=== PATIENT | male | born 1955 | race Two or more races ===

== ENCOUNTER 2023-05-24 12:43 | Inpatient (IN) | payer OTHER ==
[~2023-05-24] VITALS: Ht 167.6 cm; Wt 42.0 kg
[2023-05-24] MEDS ORDERED: methylPREDNISolone SOD SUCC 125 MG/2 ML VL IV ONE (14:15)
[2023-05-24 14:34] LABS: Basophils # (auto) 0 10 ^3/uL (0-0.2); Eosinophils # (auto) 0 10 ^3/uL (0-0.8); Neutrophils % (auto) 93.3 % (37.0-80.0)
[2023-05-24 14:37] LABS: Basophils % (auto) 0.2 % (0.0-2.0); Hemoglobin 13.5 g/dL (13.5-17.5); Lymphocytes # (auto) 0.4 10 ^3/uL (0.4-5.4); Lymphocytes % (auto) 2.3 % (10.0-50.0); Mean Corpuscular Hemoglobin 33.7 pg (28.0-32.0); Mean Corpuscular Volume 105.1 fL (80.0-100.0); Monocytes # (auto) 0.8 10 ^3/uL (0-1.3); Monocytes % (auto) 4.2 % (0.0-12.0); Neutrophils # (auto) 16.7 10 ^3/uL (1.6-8.6); Red Cell Distribution Width 17.7 % (11.8-14.3); White Blood Cell 17.9 10^3/uL (4.4-10.8)
[2023-05-24 14:50] LABS: Alanine Aminotransferase 21 U/L (7-40); Albumin 4.8 g/dL (3.2-4.8); Alkaline Phosphatase 84 U/L (46-116); Anion Gap 20 (5-15); Aspartate Aminotransferase 14 U/L (13-40); BUN/Creatinine Ratio 29.7 (10.0-20.0); Bilirubin, Total 0.2 mg/dL (0.2-1.0); Calcium 10.1 mg/dL (8.5-10.1); Carbon Dioxide 11 mmol/L (20-30); Chloride 109 mmol/L (98-107); Glucose 230 mg/dL (74-106); Sodium 140 mmol/L (136-145); Total Protein 8.7 g/dL (5.7-8.2)
[2023-05-24 15:00] LABS: Lactic Acid w/Reflex 2.1 mmol/L (0.4-2.0)
[2023-05-24 15:01] LABS: Blood Urea Nitrogen 144 mg/dL (9-23)
[2023-05-24] MEDS ORDERED: SODIUM BICARBONATE 8.4 % INJ 50ML VIAL IV ONE (15:30)
[2023-05-24] MEDS ORDERED: ALBUTEROL SULF 2.5 MG/0.5ML(0.5%) NEB SOLN HHN ONE (15:30)
[2023-05-24] MEDS ORDERED: CALCIUM GLUC 1,000mg/50ml-NS 50 ML IV ONE (15:30)
[2023-05-24 17:09] VITALS: PULSE 107; RESP 20
[2023-05-24] MEDS ORDERED: ACETAMINOPHEN 325 MG TAB PO PRN (17:15)
[2023-05-24] MEDS ORDERED: MORPHINE SULFATE INJ 2 MG/ml SYRG IV PRN (17:15)
[2023-05-24] MEDS ORDERED: DOCUSATE SOD 100 MG CAP PO PRN (17:15)
[2023-05-24] MEDS ORDERED: DEXTROSE (50%) 50ML SYRG IV PRN (17:15)
[2023-05-24] MEDS ORDERED: HYDROcodone-ACET 5/325MG TAB PO PRN (17:15)
[2023-05-24] MEDS ORDERED: ONDANSETRON HCL 4 MG/2 ML VIAL IV PRN (17:15)
[2023-05-24] MEDS ORDERED: NITROGLYCERIN 0.4 MG SL TAB SL PRN (17:15)
[2023-05-24] MEDS ORDERED: SODIUM CHLORIDE 0.9% 500 ML IV ONE (18:15)
[2023-05-24] MEDS ORDERED: InsuLIN REG 1unit/0.01ml Soln (100units/ml) IV ONE (18:15)
[2023-05-24] MEDS: SODIUM CHLORIDE 0.9% 1,000 ML IV SCH (18:17)
[2023-05-24] MEDS ORDERED: RITO100T5 PO (18:27)
[2023-05-24] MEDS ORDERED: ATOR20TA50 PO (18:27)
[2023-05-24] MEDS ORDERED: RALT400T PO (18:27)
[2023-05-24] MEDS ORDERED: [UNRECOGNIZED DRUG - CODE] PO (18:27)
[2023-05-24] MEDS ORDERED: DARU600T PO (18:27)
[2023-05-24] MEDS ORDERED: cefTRIAXone 1GM/50ML D5W 50 ML IV ONE (18:30)
[2023-05-24] MEDS ORDERED: AZITHROMYCIN 500MG/ 250ML 250 ML IV ONE (19:00)
[2023-05-24 19:09] LABS: COVID19 ANTIGEN SOFIA FIA NEGATIVE (NEGATIVE); Rapid Influenza A Negative (Negative); Rapid Influenza B Negative (Negative)
[2023-05-24 20:00] VITALS: PULSE 110; RESP 20; O2SAT 100
[2023-05-24 20:20] VITALS: PULSE 106; RESP 19; O2SAT 96
[2023-05-24] MEDS: ZIDOVUDINE 300 MG TAB PO SCH (22:00)
[2023-05-24] MEDS: RITONAVIR 100 MG TAB (NORVIR) PO SCH (22:00)
[2023-05-24] MEDS: DARUNAVIR 600 MG PO SCH (22:00)
[2023-05-24] MEDS: ACCU-CHEK COMFORT CURVE STRIP VI SCH (22:09)
[2023-05-24] MEDS: InsuLIN REG 1unit/0.01ml Soln (100units/ml) SC SCH (22:32)
[2023-05-24 23:46] LABS: Chloride 109 mmol/L (98-107); Potassium 4.5 mmol/L (3.5-5.1); Sodium 141 mmol/L (136-145)
[2023-05-24 23:47] LABS: Anion Gap 22 (5-15); Carbon Dioxide 10 mmol/L (20-30)
[2023-05-24 23:48] LABS: Calcium 9.1 mg/dL (8.7-10.4)
[2023-05-24 23:52] LABS: Glucose 287 mg/dL (74-106)
[2023-05-24 23:54] LABS: Blood Urea Nitrogen 126 mg/dL (9-23)
[2023-05-24 23:55] LABS: BUN/Creatinine Ratio 28.8 (10.0-20.0)
[2023-05-25] VITALS (10 sets, daily range): BP systolic 115; BP diastolic 68; PULSE 82–116; RESP 14–97; TEMP 98.2; O2SAT 97–100
[2023-05-25 00:56] LABS: Urine Bacteria FEW /hpf (None Seen); Urine Blood 1+ /uL (Negative); Urine Budding Yeast FEW /hpf (None Seen); Urine Clarity HAZY (Clear); Urine Color Colorless (Yellow); Urine Protein, UAD 1+ (Negative); Urine Specific Gravity 1.012 (1.001-1.035); Urine Urobilinogen Normal (Negative); Urine WBC 242 /hpf (0 - 3); Urine WBC Clumps PRESENT /hpf (None Seen); Urine pH 6.5 (5.0-8.0)
[2023-05-25 01:33] LABS: Protein, Urine 53.6 mg/dL (0.0-11.9)
[2023-05-25 01:36] LABS: Creatinine, Urine 42.93 mg/dL (30.0-125.0); Urine Protein/Creatinine Ratio 1.25
[2023-05-25] MEDS: SODIUM CHLORIDE 0.9% 1,000 ML IV SCH (01:37)
[2023-05-25 05:53] LABS: Hemoglobin 11.4 g/dL (13.5-17.5); Red Cell Distribution Width 17.2 % (11.8-14.3)
[2023-05-25 05:57] LABS: Hematocrit 34.4 % (41.0-53.0); Mean Corpuscular Hemoglobin 34.5 pg (28.0-32.0); Mean Corpuscular Hgb Conc. 33.1 g/dL (32.0-36.0); Mean Corpuscular Volume 104.2 fL (80.0-100.0); White Blood Cell 19.3 10^3/uL (4.4-10.8)
[2023-05-25 06:02] LABS: INR 1.09 (0.9-1.15); Partial Thromboplastin Time 33.3 SEC (24.5-34.5); Prothrombin Time 11.4 sec (9.3-11.8)
[2023-05-25 06:04] LABS: Basophils % (manual) 0 (0.0-2.0); Blast Cells 0; Eosinophils % (manual) 0 (0-7); Metamyelocytes % 0; Myelocytes % 0; Promyelocytes % 0; Reactive Lymphocytes 0
[2023-05-25] MEDS: ALBUTEROL SULF 2.5 MG/0.5ML(0.5%) NEB SOLN NEB SCH ×3 (06:04→18:18)
[2023-05-25] MEDS: IPRATROPIUM BROM 0.5 MG/2.5ML INH SOL NEB SCH ×3 (06:04→18:18)
[2023-05-25 06:10] LABS: Alanine Aminotransferase 17 U/L (7-40); Alkaline Phosphatase 71 U/L (46-116); Anion Gap 17 (5-15); Aspartate Aminotransferase 13 U/L (13-40); BUN/Creatinine Ratio 34.8 (10.0-20.0); Calcium 9.6 mg/dL (8.5-10.1); Carbon Dioxide 15 mmol/L (20-30); Chloride 112 mmol/L (98-107); Glucose 200 mg/dL (74-106); Potassium 4.7 mmol/L (3.5-5.1); Sodium 144 mmol/L (136-145)
[2023-05-25 06:11] LABS: Bilirubin, Total 0.2 mg/dL (0.2-1.0); Total Protein 7.5 g/dL (5.7-8.2)
[2023-05-25 06:38] LABS: Blood Urea Nitrogen 136 mg/dL (9-23)
[2023-05-25] MEDS: ACCU-CHEK COMFORT CURVE STRIP VI SCH ×4 (06:54→22:03)
[2023-05-25] MEDS: InsuLIN REG 1unit/0.01ml Soln (100units/ml) SC SCH ×4 (06:59→22:14)
[2023-05-25 08:12] LABS: Band Neutrophils % (manual) 17; Lymphocytes % (manual) 2 (10.0-50.0); Monocytes % (manual) 2 (0-12)
[2023-05-25 08:13] LABS: Macrocytosis Slight; Platelet Estimate Adequate
[2023-05-25] MEDS ORDERED: cefTRIAXone 1GM/50ML D5W 50 ML IV SCH (09:00)
[2023-05-25] MEDS: ZIDOVUDINE 300 MG TAB PO SCH (10:00)
[2023-05-25] MEDS ORDERED: PANTOPRAZOLE 40 MG/10 ML VIAL INJ IV SCH (10:00)
[2023-05-25] MEDS: RITONAVIR 100 MG TAB (NORVIR) PO SCH ×2 (10:00→22:00)
[2023-05-25] MEDS: DARUNAVIR 600 MG PO SCH ×2 (10:00→22:00)
[2023-05-25] MEDS: AZITHROMYCIN 500MG/ 250ML 250 ML IV SCH (10:52)
[2023-05-25] MEDS: ENOXAPARIN SOD 30 MG/0.3 ML SYRINGE SC SCH (10:52)
[2023-05-25] MEDS: ATORVASTATIN 20 MG TAB PO SCH (10:53)
[2023-05-25] MEDS: SODIUM BICARBONATE 50ML VIAL 100 ML in SOD CHL 0.45% 1,000 ML IV SCH ×2 (11:08→20:29)
[2023-05-25] MEDS ORDERED: MEROPENEM 1GM IVPB 100 ML IV ONE (12:45)
[2023-05-25] MEDS ORDERED: DEXTROSE (50%) 50ML SYRG IV PRN (12:45)
[2023-05-25] MEDS ORDERED: METF-370 PO (18:38)
[2023-05-25] MEDS ORDERED: LISI20TA56 PO (18:38)
[2023-05-25] MEDS ORDERED: LATA0.008 EACHEYE (18:38)
[2023-05-25] MEDS: ZIDOVUDINE 300 MG PO SCH (22:00)
[2023-05-25] MEDS: MEROPENEM 1GM IVPB 100 ML IV SCH (22:02)
[2023-05-26] VITALS (15 sets, daily range): BP systolic 112–130; BP diastolic 71–84; PULSE 82–108; RESP 14–18; TEMP 97.3–98; O2SAT 93–100
[2023-05-26] MEDS: ACCU-CHEK COMFORT CURVE STRIP VI SCH ×4 (06:09→21:47)
[2023-05-26] MEDS: InsuLIN REG 1unit/0.01ml Soln (100units/ml) SC SCH ×4 (06:09→21:47)
[2023-05-26] MEDS: SODIUM BICARBONATE 50ML VIAL 100 ML in SOD CHL 0.45% 1,000 ML IV SCH (06:55)
[2023-05-26 07:07] LABS: Complement C3 149 mg/dL (82-167)
[2023-05-26] MEDS: IPRATROPIUM BROM 0.5 MG/2.5ML INH SOL NEB SCH ×3 (07:49→18:16)
[2023-05-26] MEDS: ALBUTEROL SULF 2.5 MG/0.5ML(0.5%) NEB SOLN NEB SCH ×3 (07:49→18:16)
[2023-05-26 09:36] LABS: Basophils # (auto) 0 10 ^3/uL (0-0.2); Eosinophils # (auto) 0 10 ^3/uL (0-0.8); Lymphocytes # (auto) 0.3 10 ^3/uL (0.4-5.4)
[2023-05-26 09:37] LABS: Hematocrit 32.3 % (41.0-53.0); Hemoglobin 10.7 g/dL (13.5-17.5); Lymphocytes % (auto) 1.9 % (10.0-50.0); Mean Corpuscular Hemoglobin 34.1 pg (28.0-32.0); Mean Corpuscular Hgb Conc. 33.1 g/dL (32.0-36.0); Mean Corpuscular Volume 103.2 fL (80.0-100.0); Monocytes # (auto) 0.9 10 ^3/uL (0-1.3); Monocytes % (auto) 5.8 % (0.0-12.0); Neutrophils % (auto) 92.3 % (37.0-80.0); Red Blood Cells 3.12 10^6/uL (4.5-5.90); Red Cell Distribution Width 16.8 % (11.8-14.3); White Blood Cell 15.2 10^3/uL (4.4-10.8)
[2023-05-26] MEDS: ZIDOVUDINE 300 MG PO SCH ×2 (09:46→21:45)
[2023-05-26] MEDS: RITONAVIR 100 MG TAB (NORVIR) PO SCH ×2 (09:46→21:45)
[2023-05-26] MEDS: ENOXAPARIN SOD 30 MG/0.3 ML SYRINGE SC SCH (09:46)
[2023-05-26] MEDS: MEROPENEM 1GM IVPB 100 ML IV SCH (09:46)
[2023-05-26] MEDS: DARUNAVIR 600 MG PO SCH ×2 (09:46→21:45)
[2023-05-26] MEDS: ATORVASTATIN 20 MG TAB PO SCH (09:46)
[2023-05-26 10:11] LABS: Chloride 112 mmol/L (98-107); Potassium 3.9 mmol/L (3.5-5.1)
[2023-05-26 10:12] LABS: Anion Gap 11 (5-15); Calcium 8.8 mg/dL (8.5-10.1); Carbon Dioxide 27 mmol/L (20-30)
[2023-05-26 10:17] LABS: BUN/Creatinine Ratio 40.6 (10.0-20.0); Glucose 221 mg/dL (74-106)
[2023-05-26 10:19] LABS: % Iron Saturation 58.2 % (20-55)
[2023-05-26 10:51] LABS: Sodium 150 mmol/L (136-145)
[2023-05-26 10:53] LABS: Blood Urea Nitrogen 89 mg/dL (9-23)
[2023-05-26 11:09] LABS: Alanine Aminotransferase 18 U/L (7-40); Albumin 3.6 g/dL (3.2-4.8); Alkaline Phosphatase 67 U/L (46-116); Aspartate Aminotransferase 27 U/L (13-40); Bilirubin, Direct < 0.1 mg/dL (<0.3); Bilirubin, Total 0.2 mg/dL (0.2-1.0); Total Protein 6.6 g/dL (5.7-8.2)
[2023-05-26] MEDS: AZITHROMYCIN 500MG/ 250ML 250 ML IV SCH (13:00)
[2023-05-26] MEDS: SOD CHL 0.45% 1,000 ML IV SCH ×2 (15:30→20:48)
[2023-05-26] MEDS ORDERED: MEROPENEM 500MG IVPB 50 ML IV SCH (22:00)
[2023-05-27 08:20] LABS: Hepatitis B Surface Antigen Negative (Negative)
[2023-05-27 08:42] LABS: Hepatitis C Antibody Negative (Negative)
== END 2023-05-26 23:42 | disposition short-term general hospital (02) | DRG 974 ==
LOC: ER 12:43 → TELE 17:18 → TELE-WESTW 05-25 17:15 → WEST WING 05-26 18:48
PROVIDERS: ADMIT Internal Medicine; ATTEND Internal Medicine
DX: A41.9 Sepsis, unspecified organism (principal); J96.01 Acute respiratory failure with hypoxia; B20 Human immunodeficiency virus [HIV] disease; J15.69 Pneumonia due to other Gram-negative bacteria; J15.9 Unspecified bacterial pneumonia; N17.0 Acute kidney failure with tubular necrosis; E87.20 Acidosis, unspecified; R64 Cachexia; N39.0 Urinary tract infection, site not specified; Z68.1 Body mass index [BMI] 19.9 or less, adult; I42.9 Cardiomyopathy, unspecified; E78.5 Hyperlipidemia, unspecified; E87.5 Hyperkalemia; D63.1 Anemia in chronic kidney disease; E11.22 Type 2 diabetes mellitus with diabetic chronic kidney disease; J20.9 Acute bronchitis, unspecified; N18.9 Chronic kidney disease, unspecified; I12.9 Hypertensive chronic kidney disease with stage 1 through stage 4 chronic kidney disease, or unspecified chronic kidney disease; R79.89 Other specified abnormal findings of blood chemistry; Z20.822 Contact with and (suspected) exposure to COVID-19; D63.8 Anemia in other chronic diseases classified elsewhere; Z98.2 Presence of cerebrospinal fluid drainage device
CPT/HCPCS: 36415; 71045; 71250; 76775; 80048; 80053; 80076; 81001; 82306; 82570; 82607; 82962; 83036; 83540; 83550; 83605; 83735; 83880; 83935; 83970; 84156; 84443; 84484; 85007; 85025; 85027; 85610; 85730; 86160; 86803; 87040; 87086; 87340; 87426; 87804; 93306; 94640; 94644; 99291; C9113; G0378; J1815; J2185

== ENCOUNTER 2023-12-10 19:48 | Emergency (ER) | payer OTHER ==
[~2023-12-10 19:48] MED LIST: ATOR20TA50 PO; DARU600T PO; LATA0.008 EACHEYE; LISI20TA56 PO; METF-370 PO; RALT400T PO; [UNRECOGNIZED DRUG - CODE] PO; [UNRECOGNIZED DRUG - CODE] PO
[2023-12-10] MEDS: GABAPENTIN 300 MG CAP PO ONE (20:38)
[2023-12-10 23:54] VITALS: PULSE 96; RESP 16; O2SAT 98
[2023-12-10] MEDS: ETOMIDATE (2MG/ML) 20ML VIAL IV ONE (23:59)
[2023-12-11] MEDS ORDERED: IBUP-1454 PO (00:22)
[2023-12-11] MEDS ORDERED: CLON0.2T PO (01:51)
[2023-12-11] MEDS: cloNIDine HCL 0.1 MG TAB PO ONE (02:13)
[2023-12-11 04:00] VITALS: BP 175/90; PULSE 88; RESP 15; O2SAT 99
== END 2023-12-11 05:31 | disposition home or self-care (01) ==
LOC: ER 19:48 → EDBD 19:48 → ER 12-11 05:31
DX: S43.014A Anterior dislocation of right humerus, initial encounter (principal); I10 Essential (primary) hypertension; E11.9 Type 2 diabetes mellitus without complications; E78.5 Hyperlipidemia, unspecified; W20.8XXA Other cause of strike by thrown, projected or falling object, initial encounter; Y93.89 Activity, other specified; Y92.89 Other specified places as the place of occurrence of the external cause; Y99.8 Other external cause status
CPT/HCPCS: 23650; 73020; 73030; 93005